=== PATIENT | male | born 1990 | race Two or more races ===

== ENCOUNTER 2017-03-08 20:46 | Emergency (ER) | payer SELFPAY ==
[~2017-03-08] VITALS: Ht 182.9 cm; Wt 104.5 kg
[2017-03-08] MEDS ORDERED: KETOROLAC TROMETHAMINE 60 MG/2 ML VIAL IM ONE (21:30)
[2017-03-08 22:26] VITALS: BP 131/68
== END 2017-03-08 22:36 | disposition home or self-care (01) ==
LOC: EMS 20:49
DX: S13.4XXA Sprain of ligaments of cervical spine, initial encounter (principal); S70.02XA Contusion of left hip, initial encounter; S80.02XA Contusion of left knee, initial encounter; S30.811A Abrasion of abdominal wall, initial encounter; F12.90 Cannabis use, unspecified, uncomplicated; F17.210 Nicotine dependence, cigarettes, uncomplicated; V23.4XXA Motorcycle driver injured in collision with car, pick-up truck or van in traffic accident, initial encounter; Y93.89 Activity, other specified; Y92.89 Other specified places as the place of occurrence of the external cause; Y99.8 Other external cause status
CPT/HCPCS: 71010; 72040; 73503; 73562; 96372; 99284; 99406; J1885

== ENCOUNTER 2017-03-11 21:02 | Emergency (ER) | payer SELFPAY ==
[~2017-03-11] VITALS: Ht 188 cm; Wt 104.5 kg
[2017-03-11] MEDS ORDERED: HYDR-3705 PO (21:07)
[2017-03-11] MEDS ORDERED: TRAM50TA4 PO (21:07)
[2017-03-11] MEDS ORDERED: KETOROLAC TROMETHAMINE 60 MG/2 ML VIAL IM ONE (22:00)
[2017-03-11 22:02] VITALS: BP 132/82
== END 2017-03-11 22:05 | disposition home or self-care (01) ==
LOC: EMS 21:02
DX: S83.92XA Sprain of unspecified site of left knee, initial encounter (principal); F17.210 Nicotine dependence, cigarettes, uncomplicated; F12.10 Cannabis abuse, uncomplicated; V29.60XA Unspecified motorcycle rider injured in collision with unspecified motor vehicles in traffic accident, initial encounter; Y93.89 Activity, other specified; Y92.89 Other specified places as the place of occurrence of the external cause; Y99.9 Unspecified external cause status
CPT/HCPCS: 29505; 96372; 99283; 99406; J1885